=== PATIENT | female | born 1950 | race Hispanic/Latino ===

== ENCOUNTER 2017-09-29 22:05 | Emergency (ER) | payer SELFPAY | END 2017-09-29 22:40 | disposition left against medical advice (07) | LOC: ED 22:05 | DX: Z53.21 Procedure and treatment not carried out due to patient leaving prior to being seen by health care provider (principal) ==

== ENCOUNTER 2017-10-26 00:10 | Emergency (ER) | payer SELFPAY ==
[2017-10-26 01:00] VITALS: BP 159/104
[2017-10-26 01:36] LABS: Basophils % (Auto) 0.5 % (0.0-1.8); Eosinophils % (Auto) 0.5 % (0.0-4.3); Hematocrit 45.1 % (30.3-42.9); Hemoglobin 14.9 gm/dl (10.1-14.3); Mean Corpuscular HGB Conc 33 % (30-34); Mean Corpuscular Hemoglobin 29 pg (28-32); Mean Corpuscular Volume 88 fl (79-97); Platelet Count 248 K/mm3 (140-440); Red Blood Count 5.12 M/mm3 (3.65-5.03); Red Cell Distribution Width 14.9 % (13.2-15.2); White Blood Count 8.4 K/mm3 (4.5-11.0)
[2017-10-26 02:01] LABS: Anion Gap 13 mmol/L; BUN/Creatinine Ratio 25; Blood Urea Nitrogen 15 mg/dL (7-17); Calcium 8.6 mg/dL (8.4-10.2); Carbon Dioxide 32 mmol/L (22-30); Chloride 92.9 mmol/L (98-107); Glucose 122 mg/dL (65-100); Potassium 3.9 mmol/L (3.6-5.0); Sodium 134 mmol/L (137-145)
--- NOTE | 2017-10-26 03:00 | XRay Report ---
FINAL REPORT PROCEDURE: XR CHEST ROUTINE 2V TECHNIQUE: PA and lateral chest radiographs were obtained. CPT 41185 HISTORY: Shortness of breath, SOB, cough, and fever..started getting worse today COMPARISON: No prior studies are available for comparison. FINDINGS: Heart: Heart is enlarged. Mediastinum/Vessels: Normal. Lungs/Pleural space: Lungs are expanded and clear. There are no infiltrates, effusions or pneumothoraces.. Bony thorax: No acute osseous abnormality. There is degenerative arthrosis of the glenohumeral joints. Other: IMPRESSION: Heart is enlarged. There is no acute lung disease.
--- NOTE | 2017-10-26 03:29 | Emergency Department Report ---
HPI - General Chief Complaint: Dyspnea/Respdistress - HPI HPI: This is a 67-year-old female presents to the emergency department from home with complaint of some nausea and vomiting. Patient says that she has been dealing with some "cold" symptoms and thinks that she might have "the flu." The patient has a past medical history of asthma, CHF, COPD on 2 L nasal cannula, CVA, diabetes, coronary artery disease with DC and hypertension. She is also a tobacco smoker but says that she is trying to quit. 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 She denies any fever, chest pain or diaphoresis. She does have some shortness of breath but says that she always has this. She also has bilateral lower extremity swelling that worsened a few days ago but once again she says that she always has those symptoms. ED Past Medical Hx - Past Medical History Previous Medical History?: Yes Hx Hypertension: Yes Hx CVA: Yes Hx Heart Attack/AMI: Yes Hx Congestive Heart Failure: Yes Hx Diabetes: Yes Hx Arthritis: Yes Hx Asthma: Yes Hx COPD: Yes (Home 02 2 liters) Additional medical history: smoke 1/2 pack cigarettes a day - Surgical History Additional Surgical History: tubal ligation - Social History Smoking Status: Current Every Day Smoker - Medications Home Medications: Home Medications Medication Instructions Recorded Confirmed Last Taken Type Unobtainable [Unobtainable] 08/29/13 08/29/13 Unknown History ED Review of Systems ROS: Stated complaint: N/V; BODYACHES; FATIGUE Other details as noted in HPI Comment: All other systems reviewed and negative Constitutional: denies: chills, fever ENT: denies: ear pain, throat pain Respiratory: cough, shortness of breath (chronic) Cardiovascular: edema. denies: chest pain Gastrointestinal: nausea, vomiting. denies: abdominal pain Genitourinary: denies: urgency, dysuria, discharge Musculoskeletal: denies: back pain, joint swelling, arthralgia Skin: denies: rash, lesions Physical Exam - Physical Exam Vital Signs: Vital Signs 10/26/17 00:51 Temperature 98.6 F Pulse Rate 86 Respiratory 24 Rate Blood Pressure 159/104 O2 Sat by Pulse 91 Oximetry Physical Exam: GENERAL: The patient is well-developed well-nourished. HENT: Normocephalic. Atraumatic. Patient has moist mucous membranes. EYES: Extraocular motions are intact. Pupils equal reactive to light bilaterally. NECK: Supple. Trachea is midline. CHEST/LUNGS: Coarse breath sound heard throughout the chest. There is some mild wheezing heard. Mild tachypnea but no accessory muscle use. There is no respiratory distress noted. HEART/CARDIOVASCULAR: Regular. There is no tachycardia. There is no murmur. ABDOMEN: Abdomen is soft, nontender. Patient has normal bowel sounds. There is no abdominal distention. SKIN: Skin is warm and dry. There is some pitting edema to the bilateral lower extremities. NEURO: The patient is awake, alert, and oriented. The patient is cooperative. The patient has no focal neurologic deficits. The patient has normal speech. MUSCULOSKELETAL: There is no tenderness or deformity. There is no evidence of acute injury. ED Course Vital Signs 10/26/17 00:51 Temperature 98.6 F Pulse Rate 86 Respiratory 24 Rate Blood Pressure 159/104 O2 Sat by Pulse 91 Oximetry ED Medical Decision Making - Lab Data Result diagrams: 10/26/17 01:17 10/26/17 01:17 - EKG Data -: EKG Interpreted by Sd EKG shows normal: sinus rhythm, axis, intervals, QRS complexes, ST-T waves ( Nonspecific T-waves) Rate: normal - EKG Data When compared to previous EKG there are: previous EKG unavailable Interpretation: other (sinus rhythm, normal axis, normal rate, nonspecific T waves.) - Radiology Data Radiology results: image reviewed interpreted by me: Chest x-ray shows some mild cardiomegaly and some pulmonary vascular congestion. No obvious pleural effusions. No obvious pneumonia. - Medical Decision Making The patient had the majority of her blood work done through triage. It shows an equivocal troponin of 0.017. She has a BNP of greater than 21,000 and both of this is without any renal insufficiency. Chest x-ray shows some pulmonary vascular congestion. Negative for influenza. Patient has some hypoxia on room air but is usually 2 L oxygen dependent at home. Even before I was able to get this patient's chart and see her in the room, she was already telling the nurse that she has to go home. She is very concerned to make sure that her son is able to get home and get to work on time. I sat down with the patient and explained that she had lab abnormalities and appeared to me to have signs of CHF and COPD exacerbation. I feel that she requires admission for diuresis, breathing treatments and possibly cardio and/or pulmonology consultation. However the patient still refuses to stay for any further testing and certainly for admission. She understands that this could lead to worsening of her nausea and vomiting, shortness of breath, heart attack, respiratory distress, coma or even . She says that she plans to follow-up with her primary care physician and her specialists as early this week as possible and says that she will return to the ER if anything changes. Despite the risks mention to her, she does not want to stay and has decided to sign out AGAINST MEDICAL ADVICE. - Differential Diagnosis CHF, COPD, DC, PE Critical Care Time: No Critical care attestation.: If time is entered above; I have spent that time in minutes in the direct care of this critically ill patient, excluding procedure time. ED Disposition Clinical Impression: COPD exacerbation, Lower extremity edema CHF exacerbation Qualifiers: Congestive heart failure type: unspecified congestive heart failure type Qualified Code(s): I50.9 - Heart failure, unspecified Hypertension Qualifiers: Hypertension type: essential hypertension Qualified Code(s): I10 - Essential ( primary) hypertension Disposition: LEFT AGAINST MED ADVICE Is pt being admited?: No Condition: Fair Instructions: Chronic Bronchitis (ED), Hypertension (ED) Time of Disposition: 04:02
== END 2017-10-26 03:49 | disposition left against medical advice (07) ==
LOC: ED 00:10
DX: J44.1 Chronic obstructive pulmonary disease with (acute) exacerbation (principal); I11.0 Hypertensive heart disease with heart failure; I50.9 Heart failure, unspecified; I25.2 Old myocardial infarction; E11.9 Type 2 diabetes mellitus without complications; M19.90 Unspecified osteoarthritis, unspecified site; F17.210 Nicotine dependence, cigarettes, uncomplicated; Z86.73 Personal history of transient ischemic attack (TIA), and cerebral infarction without residual deficits; Z98.51 Tubal ligation status; Z99.81 Dependence on supplemental oxygen; Z88.6 Allergy status to analgesic agent; Z88.8 Allergy status to other drugs, medicaments and biological substances
CPT/HCPCS: 36415; 71020; 80048; 83880; 84484; 85025; 87400; 93005; 93010; 99284

== ENCOUNTER 2018-03-25 13:07 | Inpatient (IN) | payer MEDICARE ==
[2018-03-25] MEDS ORDERED: PROVENTIL IH ONE (13:33)
[2018-03-25] MEDS ORDERED: ATROVENT IH ONE (13:33)
[2018-03-25] MEDS ORDERED: LASIX IV ONE (13:33)
--- NOTE | 2018-03-25 14:07 | XRay Report ---
Single view chest: Compared to 10/26/17. History: Shortness of breath. Findings: Marked cardiomegaly. Trachea is midline. Mild to moderate venous congestion. No consolidation or pleural effusion. Impression: Probable early CHF. The No significant interval change.
[2018-03-25 14:26] LABS: Basophils % (Auto) 0.2 % (0.0-1.8); Eosinophils % (Auto) 0.3 % (0.0-4.3); Hematocrit 46.1 % (30.3-42.9); Hemoglobin 15.9 gm/dl (10.1-14.3); Lymphocytes # (Auto) 1.1 K/mm3 (1.2-5.4); Lymphocytes % (Auto) 12.7 % (13.4-35.0); Mean Corpuscular HGB Conc 35 % (30-34); Mean Corpuscular Hemoglobin 30 pg (28-32); Mean Corpuscular Volume 88 fl (79-97); Monocytes # (Auto) 0.8 K/mm3 (0.0-0.8); Monocytes % (Auto) 8.7 % (0.0-7.3); Platelet Count 274 K/mm3 (140-440); Red Blood Count 5.23 M/mm3 (3.65-5.03); Red Cell Distribution Width 13.9 % (13.2-15.2)
[2018-03-25 14:36] LABS: BUN/Creatinine Ratio 24; Blood Urea Nitrogen 12 mg/dL (7-17); Calcium 9.2 mg/dL (8.4-10.2); Hemolysis Index 3
--- NOTE | 2018-03-25 14:46 | Emergency Department Report ---
ED Shortness of Breath HPI - General Chief Complaint: Dyspnea/Respdistress Stated Complaint: DIFFICULTY BREATHING Time Seen by Provider: 03/25/18 13:33 Source: patient, EMS Mode of arrival: Stretcher Limitations: No Limitations - History of Present Illness Initial Comments: Patient is a 67-year-old female with past medical history of COPD and CHF who is presenting with shortness of breath. Patient states she's had some increased work of breathing for the past 2-3 days. Patient called 911 and when she was seen by the paramedics her O2 sats when the low 80s. Patient was noted to be wheezing in route and did receive a breathing treatment and Solu-Medrol. Patient states that she has had a cough is nonproductive she denies any fevers nausea vomiting diarrhea abdominal pain at this time. - Related Data Home Medications Medication Instructions Recorded Confirmed Last Taken Unobtainable 08/29/13 08/29/13 Unknown Allergies Allergy/AdvReac Type Severity Reaction Status Date / Time ibuprofen [From Motrin] Allergy Rash Verified 03/25/18 13:23 codeine AdvReac Vomiting Verified 03/25/18 13:23 etodolac [From Lodine] AdvReac Vomiting Verified 03/25/18 13:23 ED Review of Systems ROS: Stated complaint: DIFFICULTY BREATHING Other details as noted in HPI Comment: All other systems reviewed and negative ED Past Medical Hx - Past Medical History Hx Hypertension: Yes Hx CVA: Yes Hx Heart Attack/AMI: Yes Hx Congestive Heart Failure: Yes Hx Diabetes: Yes Hx Arthritis: Yes Hx Asthma: Yes Hx COPD: Yes (Home 02 2 liters) Additional medical history: smoke 1/2 pack cigarettes a day - Surgical History Additional Surgical History: tubal ligation - Social History Smoking Status: Current Every Day Smoker Substance Use Type: Alcohol - Medications Home Medications: Home Medications Medication Instructions Recorded Confirmed Last Taken Type Unobtainable 08/29/13 08/29/13 Unknown History ED Physical Exam - General Limitations: No Limitations General appearance: alert, in no apparent distress - Head Head exam: Present: atraumatic, normocephalic - Eye Eye exam: Present: normal appearance - ENT ENT exam: Present: mucous membranes moist - Neck Neck exam: Present: normal inspection - Respiratory Respiratory exam: Present: normal lung sounds bilaterally, rales. Absent: respiratory distress, wheezes, rhonchi, stridor - Cardiovascular Cardiovascular Exam: Present: regular rate, normal rhythm. Absent: systolic murmur, diastolic murmur, rubs, gallop - GI/Abdominal GI/Abdominal exam: Present: soft, normal bowel sounds. Absent: distended, tenderness, guarding - Extremities Exam Extremities exam: Present: normal inspection - Back Exam Back exam: Present: normal inspection - Neurological Exam Neurological exam: Present: alert, oriented X3 - Psychiatric Psychiatric exam: Present: normal affect, normal mood - Skin Skin exam: Present: warm, dry, intact, normal color. Absent: rash ED Course Vital Signs 03/25/18 03/25/18 03/25/18 13:14 13:15 13:24 Temperature 98.1 F Pulse Rate 82 77 Respiratory 28 H 27 H 22 Rate Blood Pressure 138/70 O2 Sat by Pulse 83 L 96 Oximetry 03/25/18 03/25/18 03/25/18 13:30 13:45 14:01 Temperature Pulse Rate 75 77 85 Respiratory 18 23 29 H Rate Blood Pressure 138/64 129/69 128/60 O2 Sat by Pulse 100 76 L 99 Oximetry 03/25/18 14:30 Temperature Pulse Rate 73 Respiratory 18 Rate Blood Pressure 130/70 O2 Sat by Pulse 92 Oximetry ED Medical Decision Making - Lab Data Result diagrams: 03/25/18 13:31 03/25/18 13:31 Lab Results 03/25/18 03/25/18 03/25/18 Range/Units 13:31 13:31 14:22 WBC 8.8 (4.5-11.0) K/mm3 RBC 5.23 H (3.65-5.03) M/mm3 Hgb 15.9 H (10.1-14.3) gm/dl Hct 46.1 H (30.3-42.9) % MCV 88 (79-97) fl MCH 30 (28-32) pg MCHC 35 H (30-34) % RDW 13.9 (13.2-15.2) % Plt Count 274 (140-440) K/mm3 Lymph % (Auto) 12.7 L (13.4-35.0) % [place] % (Auto) 8.7 H (0.0-7.3) % Eos % (Auto) 0.3 (0.0-4.3) % Baso % (Auto) 0.2 (0.0-1.8) % Lymph # 1.1 L (1.2-5.4) K/mm3 [place] # 0.8 (0.0-0.8) K/mm3 Eos # 0.0 (0.0-0.4) K/mm3 Baso # 0.0 (0.0-0.1) K/mm3 Seg Neutrophils % 78.1 H (40.0-70.0) % Seg Neutrophils # 6.9 (1.8-7.7) K/mm3 Sodium 122 L (137-145) mmol/L Potassium 3.7 (3.6-5.0) mmol/L Chloride 77.0 L (98-107) mmol/L Carbon Dioxide 36 H (22-30) mmol/L Anion Gap 13 mmol/L BUN 12 (7-17) mg/dL Creatinine 0.5 L (0.7-1.2) mg/dL Estimated GFR > 60 ml/min BUN/Creatinine Ratio 24 % Glucose 135 H (65-100) mg/dL POC Glucose 137 H (70-105) Calcium 9.2 (8.4-10.2) mg/dL Troponin T < 0.010 (0.00-0.029) ng/mL NT-Pro-B Natriuret Pep 6600 H (0-900) pg/mL - EKG Data -: EKG Interpreted by Me - EKG Data Interpretation: other (EKG shows sinus rhythm rate of 75 normal axis normal intervals lateral T-wave inversions and no ST segment elevations or depressions , interpretation is 1335) - Radiology Data Chest x-ray shows pulmonary edema and cardiomegaly consistent with CHF exacerbation - Medical Decision Making Patient is a 67-year-old female who is here with respiratory distress. Patient's wheezing had improved by time she arrived. Patient was given 60 of Lasix IV. Patient was tried on nasal cannula however her O2 sats continued to drop when she is not O nonrebreather. Patient was started on Ventimask and respiratory will monitor. Patient will be admitted at this time to Dr. Hazel with the hospitalist service. We will continue to monitor the patient's O2 sat restore status and given the respiratory therapist the go ahead to start the patient on BiPAP if warranted. Critical care attestation.: If time is entered above; I have spent that time in minutes in the direct care of this critically ill patient, excluding procedure time. ED Disposition Clinical Impression: Hypoxia CHF exacerbation Qualifiers: Heart failure type: unspecified Qualified Code(s): I50.9 - Heart failure, unspecified Disposition: DC-01 TO HOME OR SELFCARE Is pt being admited?: Yes Does the pt Need Aspirin: No Condition: Serious
--- NOTE | 2018-03-25 14:50 | History and Physical Report ---
History of Present Illness Chief complaint: Im short of breath History of present illness: 67 YO Female with HTN, CVA, DM, OA, COPD on Home Oxygen, Chronic Respiratory Failure, Nicotine Dependence presents to ED for evaluation. Pt states that she has experienced shortness of breath and cough for the past 3 days with worsening symptoms over the past 2 days. Pt acknowledges Orthopnea/PND, Bilateral leg swelling. Pt states she became concerned this morning, and called EMS. Upon arrival, the patient was found to have Acute hypoxemic Respiratory Failure with pulse oximetry of 82% on room air. PT was treated with supplemental oxygen and transported to [facility] for further care and evaluation. Pt seen and evaluated in ED and found to have Acute CHF with concomitant respiratory failure. Pt admitted to telemetry. Cardiology consulted in ED. Pt denies fever, chills, CP, Palpitations, NVD, Syncope, Trauma, BRBPR, hemoptysis , or recent ill contacts. Past History Past Medical History: acute [place], arthritis, COPD, diabetes, heart failure, hypertension, stroke Past Surgical History: Other (Tubal ligation) Social history: , smoking Family history: no significant family history (reviewed) Medications and Allergies Allergies Allergy/AdvReac Type Severity Reaction Status Date / Time ibuprofen [From Motrin] Allergy Rash Verified 03/25/18 13:23 codeine AdvReac Vomiting Verified 03/25/18 13:23 etodolac [From Lodine] AdvReac Vomiting Verified 03/25/18 13:23 Home Medications Medication Instructions Recorded Confirmed Last Taken Type Unobtainable 08/29/13 08/29/13 Unknown History Review of Systems Constitutional: no weight loss, no weight gain, no fever, no chills Ears, nose, mouth and throat: no ear pain, no ear discharge, no tinnitis, no decreased hearing, no nose pain, no nasal congestion Breasts: no change in shape, no swelling, no mass Cardiovascular: orthopnea, edema, shortness of breath, paroxysmal nocturnal dyspnea, no chest pain, no syncope Respiratory: cough, no excessive sputum, no hemoptysis Gastrointestinal: no nausea, no vomiting, no diarrhea, no constipation Genitourinary Female: no pelvic pain, no flank pain, no dysuria, no urinary frequency, no urgency Rectal: no pain, no incontinence, no bleeding Musculoskeletal: no neck pain, no shooting arm pain, no arm numbness/tingling, no low back pain, no shooting leg pain, no leg numbness/tingling Integumentary: no rash, no pruritis, no redness, no sores, no wounds Neurological: no weakness, no parathesias, no numbness, no tingling, no seizures , no syncope Endocrine: no cold intolerance, no heat intolerance, no polyphagia, no excessive thirst, no polydipsia, no polyuria Hematologic/Lymphatic: no easy bruising, no easy bleeding, no lymphadenopathy, no lymphedema Allergic/Immunologic: no urticaria, no allergic rhinitis, no wheezing, no persistent infections, no anaphylaxis Exam - Constitutional Vitals: Temp Pulse Resp BP Pulse Ox 98.1 F 73 18 130/70 92 03/25/18 13:24 03/25/18 14:30 03/25/18 14:30 03/25/18 14:30 03/25/18 14:30 General appearance: Present: mild distress - EENT Eyes: Present: PERRL ENT: hearing intact, clear oral mucosa - Neck Neck: Present: supple, normal ROM - Respiratory Respiratory effort: labored Respiratory: bilateral: diminished, rhonchi - Cardiovascular Heart Sounds: Present: S1 & S2. Absent: rub, click - Extremities Extremities: pulses symmetrical, No edema Peripheral Pulses: within normal limits - Abdominal General gastrointestinal: Present: soft, non-tender, non-distended, normal bowel sounds Female genitourinary: Present: normal - Integumentary Integumentary: Present: clear, warm, dry - Musculoskeletal Musculoskeletal: gait normal, strength equal bilaterally - Psychiatric Psychiatric: appropriate mood/affect, intact judgment & insight - Neurologic Neurologic: CNII-XII intact, moves all extremities Results - Labs CBC & Chem 7: 03/25/18 13:31 03/25/18 13:31 Labs: Abnormal lab results 03/25/18 03/25/18 03/25/18 Range/Units 13:31 13:31 14:22 RBC 5.23 H (3.65-5.03) M/mm3 Hgb 15.9 H (10.1-14.3) gm/dl Hct 46.1 H (30.3-42.9) % MCHC 35 H (30-34) % Lymph % (Auto) 12.7 L (13.4-35.0) % [place] % (Auto) 8.7 H (0.0-7.3) % Lymph # 1.1 L (1.2-5.4) K/mm3 Seg Neutrophils % 78.1 H (40.0-70.0) % Sodium 122 L (137-145) mmol/L Chloride 77.0 L (98-107) mmol/L Carbon Dioxide 36 H (22-30) mmol/L Creatinine 0.5 L (0.7-1.2) mg/dL Glucose 135 H (65-100) mg/dL POC Glucose 137 H (70-105) NT-Pro-B Natriuret Pep 6600 H (0-900) pg/mL Assessment and Plan - Patient Problems (1) CHF (congestive heart failure) Current Visit: Yes Status: Acute Qualifiers: Heart failure type: systolic Heart failure chronicity: acute Qualified Code(s): I50.21 - Acute systolic (congestive) heart failure Plan to address problem: Admit to telemetry, Strict I/O, Daily weight, monitor uop q shift, supplemental oxygen, Echo, cardiology consulted in ED, thyroid panel, BNP,Chest X ray (2) Hyponatremia syndrome Current Visit: Yes Status: Acute Plan to address problem: Urine electrolytes, repeat bmp, (3) COPD (chronic obstructive pulmonary disease) Current Visit: Yes Status: Acute Qualifiers: COPD type: chronic bronchitis Plan to address problem: supplemental oxygen, nebulizer therapy, incentive spirometry, smoking cessation counseling, NIPPV as clinically indicated. (4) Acute respiratory failure Current Visit: Yes Status: Acute Qualifiers: Respiratory failure complication: hypoxia Qualified Code(s): J96.01 - Acute respiratory failure with hypoxia Plan to address problem: Supplemental oxygen, nebulizer therapy, diuresis, pulse oximetry, (5) DVT prophylaxis Current Visit: Yes Status: Acute Plan to address problem: SCD to BLE while in bed
[2018-03-25] MEDS ORDERED: PROVENTIL IH PRN (14:52)
[2018-03-25] MEDS ORDERED: SODIUM CHLORIDE FLUSH SYRINGE 10 ML IV PRN (14:52)
[2018-03-25] MEDS ORDERED: ZOFRAN IV PRN (14:52)
--- NOTE | 2018-03-25 16:17 | Consultation ---
History of Present Illness Consult date: 03/25/18 Consult reason: congestive heart failure History of present illness: Patient is a 67yr old woman with a history of COPD on home oxygen who continues to smoke cigarettes. She was brought to the emergency department with shortness of breath, active wheezing, admitted with COPD exacerbation. Chest xray reports marked cardiomegaly with mild interstitial edema. Labs notable for a BNP of 6600 and severe hyponatremia, sodium of 122. She denies chest pain. Noted with lower extremity edema. Findings consistent with heart failure. Patient denies a prior cardiac history. She denies prior cardiac workup. Her EKG is a sinus rhythm with LVH. No acute ischemic changes. Cardiac consultation was requested for further CHF evaluation and management. Past History Social history: , smoking Family history: no significant family history (reviewed) Medications and Allergies Allergies Allergy/AdvReac Type Severity Reaction Status Date / Time ibuprofen [From Motrin] Allergy Rash Verified 03/25/18 13:23 codeine AdvReac Vomiting Verified 03/25/18 13:23 etodolac [From Lodine] AdvReac Vomiting Verified 03/25/18 13:23 Home Medications Medication Instructions Recorded Confirmed Last Taken Type Unobtainable 08/29/13 08/29/13 Unknown History Active Meds: Active Medications Acetaminophen (Tylenol) 650 mg PO Q4H PRN PRN Reason: Pain MILD(1-3)/Fever >100.5/MAK Albuterol (Proventil) 2.5 mg IH Q4HRT PRN PRN Reason: Shortness Of Breath Furosemide (Lasix) 20 mg PO BID@0600,1800 ARNULFO Ondansetron HCl (Zofran) 4 mg IV Q8H PRN PRN Reason: Nausea And Vomiting Sodium Chloride (Sodium Chloride Flush Syringe 10 Ml) 10 ml IV BID ARNULFO Sodium Chloride (Sodium Chloride Flush Syringe 10 Ml) 10 ml IV PRN PRN PRN Reason: LINE FLUSH Physical Examination Vital Signs Resp 28 H 03/25/18 13:14 General appearance: mild distress Cardiac: Positive: Reg Rate and Rhythm Lungs: Positive: Wheezes Extremities: Present: +3 Edema Results 03/25/18 13:31 03/25/18 13:31 CBC 03/25/18 Range/Units 13:31 WBC 8.8 (4.5-11.0) K/mm3 RBC 5.23 H (3.65-5.03) M/mm3 Hgb 15.9 H (10.1-14.3) gm/dl Hct 46.1 H (30.3-42.9) % Plt Count 274 (140-440) K/mm3 Lymph # 1.1 L (1.2-5.4) K/mm3 [place] # 0.8 (0.0-0.8) K/mm3 Eos # 0.0 (0.0-0.4) K/mm3 Baso # 0.0 (0.0-0.1) K/mm3 Comprehensive Metabolic Panel 03/25/18 Range/Units 13:31 Sodium 122 L (137-145) mmol/L Potassium 3.7 (3.6-5.0) mmol/L Chloride 77.0 L (98-107) mmol/L Carbon Dioxide 36 H (22-30) mmol/L BUN 12 (7-17) mg/dL Creatinine 0.5 L (0.7-1.2) mg/dL Glucose 135 H (65-100) mg/dL Calcium 9.2 (8.4-10.2) mg/dL Assessment and Plan COPD exacerbation Acute heart failure Hyponatremia We will get an echocardiogram for LVEF assessment. Pulmonary consultation for management of COPD.
[2018-03-25 16:54] LABS: Free T4 (Free Thyroxine) 1.69 ng/dL (0.76-1.46)
[2018-03-25] MEDS: LASIX PO SCH (18:36)
[2018-03-25] MEDS: SODIUM CHLORIDE FLUSH SYRINGE 10 ML IV SCH (22:03)
[2018-03-26] MEDS: LASIX PO SCH (06:16)
[2018-03-26] MEDS: SODIUM CHLORIDE FLUSH SYRINGE 10 ML IV SCH (11:42)
[2018-03-26] MEDS: TYLENOL PO PRN (11:43)
--- NOTE | 2018-03-26 16:03 | Progress Note ---
Assessment and Plan COPD exacerbation Acute systolic heart failure, uncertain etiology severe 4 chamber dilated cardiomyopathy, EF 10-15% by echocardiogram. Hyponatremia Recommend: Medical therapy for acute systolic heart failure. Sodium/fluid restriction. Daily weight. Further ischemic cardiac evaluation will depend on clinical course. Subjective Date of service: 03/26/18 Interval history: Patient is still short of breath. She denies chest pain. Objective Vital Signs Temp Pulse Pulse Resp BP Pulse Ox 03/26/18 12:02 79 18 95 03/26/18 12:00 82 03/26/18 11:19 97.6 F 74 20 116/67 98 03/26/18 07:39 97.9 F 66 18 120/68 100 03/26/18 04:33 97.5 F L 81 125/79 97 03/26/18 04:00 77 03/25/18 23:35 98.0 F 64 115/57 99 03/25/18 20:47 97 03/25/18 20:31 98 03/25/18 20:18 97.6 F 03/25/18 20:00 74 03/25/18 19:20 75 134/69 99 03/25/18 18:26 97.8 F 80 135/68 96 03/25/18 16:51 72 16 115/51 94 03/25/18 16:41 77 16 135/63 93 03/25/18 16:30 76 18 135/63 92 03/25/18 16:21 81 22 129/57 93 03/25/18 16:11 66 15 129/57 92 03/25/18 16:00 77 17 129/57 87 - Physical Examination General: Other (Mild distress) Cardiac: Positive: Reg Rate and Rhythm Lungs: Positive: Decreased Breath Sounds Neuro: Positive: Grossly Intact Extremities: Present: +2 Edema
[2018-03-26] MEDS: DUONEB *Not for PRN Use IH SCH ×3 (16:45→21:15)
--- NOTE | 2018-03-26 17:21 | Progress Note ---
Assessment and Plan Assessment and plan: 67 YO Female with HTN, CVA, DM, OA, COPD on Home Oxygen, Chronic Respiratory Failure, Nicotine Dependence presents to ED for evaluation. Pt states that she has experienced shortness of breath and cough for the past 3 days with worsening symptoms over the past 2 days. Pt acknowledges Orthopnea/PND, Bilateral leg swelling. Pt states she became concerned this morning, and called EMS. Upon arrival, the patient was found to have Acute hypoxemic Respiratory Failure with pulse oximetry of 82% on room air. PT was treated with supplemental oxygen and transported to [facility] for further care and evaluation. Acute on chronic respiratory failure COPD exacerbation New onset systolic CHF Diabetes mellitus Nicotine dependence - This morning echo was done and showed ejection fraction of 10-15%, patient is on milrinone drip and other appropriate CHF medications, cardiology consult appreciated - COPD exacerbation is dictated with IV Solu-Medrol, nebulizer, oxygen support - Sliding-scale insulin, patient consulted about cessation of smoking DVT prophylaxis - Heparin Disposition - Continue inpatient care, patient doing systemic workup once she is stable from her COPD History Interval history: Patient was seen and evaluated this morning, patient says shortness of breath is getting better. Hospitalist Physical - Physical exam Narrative exam: Not in cardiopulmonary distress. The patient appeared well nourished and normally developed. Vital signs as documented. Head exam is unremarkable. No scleral icterus . Neck is without jugular venous distension, thyromegaly, or carotid bruits. Lungs scattered wheezing. Cardiac exam reveals regular rate and Rhythm.. Abdominal exam reveals normal bowel sounds, no masses, no organomegaly and no aortic enlargement. Extremities are nonedematous and both femoral and pedal pulses are normal. 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 No focal weakness. - Constitutional Vitals: Temp Pulse Resp BP Pulse Ox 97.6 F 72 21 116/67 95 03/26/18 11:19 03/26/18 16:47 03/26/18 16:47 03/26/18 11:19 03/26/18 12:02 General appearance: Present: mild distress Results - Labs CBC & Chem 7: 03/25/18 13:31 03/25/18 13:31 Labs: Laboratory Last Values WBC 8.8 K/mm3 (4.5-11.0) 03/25/18 13:31 RBC 5.23 M/mm3 (3.65-5.03) H 03/25/18 13:31 Hgb 15.9 gm/dl (10.1-14.3) H 03/25/18 13:31 Hct 46.1 % (30.3-42.9) H 03/25/18 13:31 MCV 88 fl (79-97) 03/25/18 13:31 MCH 30 pg (28-32) 03/25/18 13:31 MCHC 35 % (30-34) H 03/25/18 13:31 RDW 13.9 % (13.2-15.2) 03/25/18 13:31 Plt Count 274 K/mm3 (140-440) 03/25/18 13:31 Lymph % (Auto) 12.7 % (13.4-35.0) L 03/25/18 13:31 [place] % (Auto) 8.7 % (0.0-7.3) H 03/25/18 13:31 Eos % (Auto) 0.3 % (0.0-4.3) 03/25/18 13:31 Baso % (Auto) 0.2 % (0.0-1.8) 03/25/18 13:31 Lymph # 1.1 K/mm3 (1.2-5.4) L 03/25/18 13:31 [place] # 0.8 K/mm3 (0.0-0.8) 03/25/18 13:31 Eos # 0.0 K/mm3 (0.0-0.4) 03/25/18 13:31 Baso # 0.0 K/mm3 (0.0-0.1) 03/25/18 13:31 Seg Neutrophils % 78.1 % (40.0-70.0) H 03/25/18 13:31 Seg Neutrophils # 6.9 K/mm3 (1.8-7.7) 03/25/18 13:31 Sodium 122 mmol/L (137-145) L 03/25/18 13:31 Potassium 3.7 mmol/L (3.6-5.0) 03/25/18 13:31 Chloride 77.0 mmol/L (98-107) L 03/25/18 13:31 Carbon Dioxide 36 mmol/L (22-30) H 03/25/18 13:31 Anion Gap 13 mmol/L 03/25/18 13:31 BUN 12 mg/dL (7-17) 03/25/18 13:31 Creatinine 0.5 mg/dL (0.7-1.2) L 03/25/18 13:31 Estimated GFR > 60 ml/min 03/25/18 13:31 BUN/Creatinine Ratio 24 % 03/25/18 13:31 Glucose 135 mg/dL (65-100) H 03/25/18 13:31 POC Glucose 136 (70-105) H 03/26/18 06:17 Calcium 9.2 mg/dL (8.4-10.2) 03/25/18 13:31 Troponin T < 0.010 ng/mL (0.00-0.029) 03/25/18 13:31 NT-Pro-B Natriuret Pep 6600 pg/mL (0-900) H 03/25/18 13:31 TSH 3.900 mlU/mL (0.270-4.200) 03/25/18 16:13 Free T4 1.69 ng/dL (0.76-1.46) H 03/25/18 16:13 Urine Creatinine 19.0 mg/dL (0.1-20.0) 03/25/18 19:57 Urine Sodium 92 mmol/L 03/25/18 19:57
[2018-03-26] MEDS ORDERED: D50W (25GM) Syringe IV PRN (17:24)
[2018-03-26 18:35] LABS: Chol/HDL Ratio 2.2 %
[2018-03-26] MEDS: MILRINONE-D5W 20 MG/100 ML 20 MG/100 ML BAG IV SCH (18:44)
[2018-03-26] MEDS: COREG PO SCH (22:00)
[2018-03-27] MEDS: HumaLOG SUB-Q SCH ×5 (00:29→22:04)
[2018-03-27] MEDS: SODIUM CHLORIDE FLUSH SYRINGE 10 ML IV SCH ×3 (00:30→23:04)
[2018-03-27] MEDS: HEPARIN SUB-Q SCH ×3 (00:30→22:03)
[2018-03-27] MEDS: MILRINONE-D5W 20 MG/100 ML 20 MG/100 ML BAG IV SCH (06:38)
[2018-03-27 07:49] LABS: BUN/Creatinine Ratio 30; Blood Urea Nitrogen 15 mg/dL (7-17); Calcium 8.5 mg/dL (8.4-10.2); Hemolysis Index 4
[2018-03-27] MEDS: DUONEB *Not for PRN Use IH SCH ×3 (08:52→21:59)
--- NOTE | 2018-03-27 09:44 | Progress Note ---
Assessment and Plan COPD exacerbation Acute systolic heart failure, uncertain etiology severe dilated cardiomyopathy, EF 10-15% by echocardiogram. Severe Hyponatremia Recommend: Medical therapy for acute systolic heart failure. Sodium/fluid restriction. Daily weight. Noninvasive ischemic workup with a Persantine thallium will be recommended only after the patient's pulmonary status is optimized and has COPD extubation is completely resolved. Subjective Date of service: 03/27/18 Interval history: Patient remains short of breath. No distress noted. Short burst on NSVT seen on telemetry overnight. It's reported the patient remained asymptomatic. Labs notable for severe hyponatremia, sodium of 117. Objective Vital Signs Temp Pulse Pulse Pulse Resp Resp BP 03/27/18 09:02 87 19 03/27/18 08:56 03/27/18 08:50 77 20 03/27/18 07:53 97.6 F 78 18 130/58 03/27/18 06:24 97.6 F 86 22 129/61 03/27/18 00:34 79 132/63 03/26/18 22:00 80 20 03/26/18 21:30 88 20 03/26/18 21:19 03/26/18 21:18 66 20 03/26/18 19:48 70 03/26/18 19:47 97.4 F L 77 18 101/46 03/26/18 16:47 72 21 03/26/18 16:42 97.8 F 76 18 134/63 03/26/18 16:30 68 19 03/26/18 12:02 79 18 03/26/18 12:00 82 03/26/18 11:19 97.6 F 74 20 116/67 03/26/18 10:00 Pulse Ox 03/27/18 09:02 03/27/18 08:56 80 L 03/27/18 08:50 03/27/18 07:53 97 03/27/18 06:24 95 03/27/18 00:34 90 03/26/18 22:00 98 03/26/18 21:30 03/26/18 21:19 91 03/26/18 21:18 03/26/18 19:48 99 03/26/18 19:47 99 03/26/18 16:47 03/26/18 16:42 99 03/26/18 16:30 03/26/18 12:02 95 03/26/18 12:00 03/26/18 11:19 98 03/26/18 10:00 98 - Physical Examination General: No Apparent Distress HEENT: Positive: PERRL Cardiac: Positive: Reg Rate and Rhythm Lungs: Positive: Wheezes Neuro: Positive: Grossly Intact Extremities: Present: +2 Edema - Labs and Meds Lipids 03/26/18 Range/Units 17:47 Triglycerides 67 (2-149) mg/dL Cholesterol 128 (50-199) mg/dL HDL Cholesterol 58 (40-59) mg/dL Cholesterol/HDL Ratio 2.20 % Comprehensive Metabolic Panel 03/27/18 Range/Units 05:56 Sodium 117 L* (137-145) mmol/L Potassium 3.9 (3.6-5.0) mmol/L Chloride 73.9 L (98-107) mmol/L Carbon Dioxide 38 H (22-30) mmol/L BUN 15 (7-17) mg/dL Creatinine 0.5 L (0.7-1.2) mg/dL Glucose 129 H (65-100) mg/dL Calcium 8.5 (8.4-10.2) mg/dL
[2018-03-27] MEDS: K-DUR PO SCH (10:37)
[2018-03-27] MEDS: ZESTRIL PO SCH (10:37)
[2018-03-27] MEDS: COREG PO SCH ×2 (10:38→22:03)
[2018-03-27] MEDS: LASIX IV SCH (10:42)
[2018-03-27] MEDS ORDERED: SAMSCA PO ONE (12:47)
--- NOTE | 2018-03-27 13:57 | Progress Note ---
Assessment and Plan Assessment and plan: 67 YO Female with HTN, CVA, DM, OA, COPD on Home Oxygen, Chronic Respiratory Failure, Nicotine Dependence presents to ED for evaluation. Pt states that she has experienced shortness of breath and cough for the past 3 days with worsening symptoms over the past 2 days. Pt acknowledges Orthopnea/PND, Bilateral leg swelling. Pt states she became concerned this morning, and called EMS. Upon arrival, the patient was found to have Acute hypoxemic Respiratory Failure with pulse oximetry of 82% on room air. PT was treated with supplemental oxygen and transported to [facility] for further care and evaluation. Acute on chronic respiratory failure COPD exacerbation New onset systolic CHF Diabetes mellitus Nicotine dependence - This morning echo was done and showed ejection fraction of 10-15%, patient is on milrinone drip and other appropriate CHF medications, cardiology consult appreciated - COPD exacerbation is dictated with IV Solu-Medrol, nebulizer, oxygen support - Sliding-scale insulin, patient consulted about cessation of smoking DVT prophylaxis - Heparin Disposition - Continue inpatient care, patient doing systemic workup once she is stable from her COPD severe hyponatremia - tolvaptan was given History Interval history: Patient was seen and evaluated this morning, patient says shortness of breath is getting better. patient wants to go home. Hospitalist Physical - Physical exam Narrative exam: Not in cardiopulmonary distress. The patient appeared well nourished and normally developed. Vital signs as documented. Head exam is unremarkable. No scleral icterus . Neck is without jugular venous distension, thyromegaly, or carotid bruits. Lungs scattered wheezing. Cardiac exam reveals regular rate and Rhythm.. Abdominal exam reveals normal bowel sounds, no masses, no organomegaly and no aortic enlargement. Extremities are nonedematous and both femoral and pedal pulses are normal. 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 No focal weakness. - Constitutional Vitals: Temp Pulse Resp BP Pulse Ox 97.6 F 90 19 130/58 80 L 03/27/18 07:53 03/27/18 10:37 03/27/18 09:02 03/27/18 07:53 03/27/18 08:56 General appearance: Present: mild distress Results - Labs CBC & Chem 7: 03/25/18 13:31 03/27/18 05:56 Labs: Laboratory Last Values WBC 8.8 K/mm3 (4.5-11.0) 03/25/18 13:31 RBC 5.23 M/mm3 (3.65-5.03) H 03/25/18 13:31 Hgb 15.9 gm/dl (10.1-14.3) H 03/25/18 13:31 Hct 46.1 % (30.3-42.9) H 03/25/18 13:31 MCV 88 fl (79-97) 03/25/18 13:31 MCH 30 pg (28-32) 03/25/18 13:31 MCHC 35 % (30-34) H 03/25/18 13:31 RDW 13.9 % (13.2-15.2) 03/25/18 13:31 Plt Count 274 K/mm3 (140-440) 03/25/18 13:31 Lymph % (Auto) 12.7 % (13.4-35.0) L 03/25/18 13:31 [place] % (Auto) 8.7 % (0.0-7.3) H 03/25/18 13:31 Eos % (Auto) 0.3 % (0.0-4.3) 03/25/18 13:31 Baso % (Auto) 0.2 % (0.0-1.8) 03/25/18 13:31 Lymph # 1.1 K/mm3 (1.2-5.4) L 03/25/18 13:31 [place] # 0.8 K/mm3 (0.0-0.8) 03/25/18 13:31 Eos # 0.0 K/mm3 (0.0-0.4) 03/25/18 13:31 Baso # 0.0 K/mm3 (0.0-0.1) 03/25/18 13:31 Seg Neutrophils % 78.1 % (40.0-70.0) H 03/25/18 13:31 Seg Neutrophils # 6.9 K/mm3 (1.8-7.7) 03/25/18 13:31 Sodium 117 mmol/L (137-145) L* 03/27/18 05:56 Potassium 3.9 mmol/L (3.6-5.0) 03/27/18 05:56 Chloride 73.9 mmol/L (98-107) L 03/27/18 05:56 Carbon Dioxide 38 mmol/L (22-30) H 03/27/18 05:56 Anion Gap 9 mmol/L 03/27/18 05:56 BUN 15 mg/dL (7-17) 03/27/18 05:56 Creatinine 0.5 mg/dL (0.7-1.2) L 03/27/18 05:56 Estimated GFR > 60 ml/min 03/27/18 05:56 BUN/Creatinine Ratio 30 % 03/27/18 05:56 Glucose 129 mg/dL (65-100) H 03/27/18 05:56 POC Glucose 124 (70-105) H 03/27/18 12:05 Hemoglobin A1c 6.3 % (4-6) H 03/26/18 17:47 Calcium 8.5 mg/dL (8.4-10.2) 03/27/18 05:56 Troponin T < 0.010 ng/mL (0.00-0.029) 03/25/18 13:31 NT-Pro-B Natriuret Pep 6600 pg/mL (0-900) H 03/25/18 13:31 Triglycerides 67 mg/dL (2-149) 03/26/18 17:47 Cholesterol 128 mg/dL (50-199) 03/26/18 17:47 LDL Cholesterol Direct 60 mg/dL (50-130) 03/26/18 17:47 HDL Cholesterol 58 mg/dL (40-59) 03/26/18 17:47 Cholesterol/HDL Ratio 2.20 % 03/26/18 17:47 TSH 3.900 mlU/mL (0.270-4.200) 03/25/18 16:13 Free T4 1.69 ng/dL (0.76-1.46) H 03/25/18 16:13 Urine Creatinine 19.0 mg/dL (0.1-20.0) 03/25/18 19:57 Urine Sodium 92 mmol/L 03/25/18 19:57
[2018-03-27] MEDS: TYLENOL PO PRN (22:05)
[2018-03-28 01:09] LABS: BUN/Creatinine Ratio 35; Blood Urea Nitrogen 21 mg/dL (7-17); Calcium 8.8 mg/dL (8.4-10.2); Hemolysis Index 68
[2018-03-28] MEDS: MILRINONE-D5W 20 MG/100 ML 20 MG/100 ML BAG IV SCH (06:42)
[2018-03-28] MEDS: LASIX IV SCH (06:42)
[2018-03-28] MEDS: HumaLOG SUB-Q SCH ×6 (07:45→22:10)
--- NOTE | 2018-03-28 09:09 | Progress Note ---
Subjective Date of service: 03/28/18 Interval history: pt denies orthopnea, no chest pain Continue therapy for acute systolic heart failure Sodium has improved, cont to monitor Non-invasive ischemic cardiac work-up once COPD exacerbation has resolved Original Note: Assessment and Plan COPD exacerbation Acute systolic heart failure, uncertain etiology severe dilated cardiomyopathy, EF 10-15% by echocardiogram. Severe Hyponatremia Recommend: Medical therapy for acute systolic heart failure. Sodium/fluid restriction. Daily weight. Noninvasive ischemic workup with a Persantine thallium will be recommended only after the patient's pulmonary status is optimized and has COPD exacerbation is completely resolved. Objective Vital Signs Temp Pulse Pulse Pulse Resp Resp BP 03/28/18 07:30 97.7 F 66 18 03/28/18 04:20 97.5 F L 71 18 119/79 03/28/18 04:00 62 03/28/18 00:03 98.3 F 20 75/38 03/27/18 23:57 68 82/40 03/27/18 22:10 82 12 03/27/18 22:00 74 18 12 03/27/18 20:01 78 03/27/18 19:59 98.8 F 72 18 125/58 03/27/18 18:21 76 18 03/27/18 18:10 74 18 03/27/18 17:05 98.9 F 70 20 99/48 03/27/18 12:00 71 03/27/18 10:37 90 03/27/18 10:00 72 18 BP Pulse Ox 03/28/18 07:30 105/54 98 03/28/18 04:20 87 03/28/18 04:00 03/28/18 00:03 03/27/18 23:57 95 03/27/18 22:10 03/27/18 22:00 96 03/27/18 20:01 90 03/27/18 19:59 83 L 03/27/18 18:21 03/27/18 18:10 03/27/18 17:05 90 03/27/18 12:00 03/27/18 10:37 03/27/18 10:00 97 - Physical Examination General: No Apparent Distress HEENT: Positive: PERRL Neuro: Positive: Grossly Intact Extremities: Present: +2 Edema - Labs and Meds Comprehensive Metabolic Panel 03/28/18 Range/Units 00:18 Sodium 126 L D (137-145) mmol/L Potassium 4.4 (3.6-5.0) mmol/L Chloride 79.0 L (98-107) mmol/L Carbon Dioxide 39 H (22-30) mmol/L BUN 21 H (7-17) mg/dL Creatinine 0.6 L (0.7-1.2) mg/dL Glucose 116 H (65-100) mg/dL Calcium 8.8 (8.4-10.2) mg/dL
[2018-03-28] MEDS: DUONEB *Not for PRN Use IH SCH ×3 (09:19→21:47)
[2018-03-28] MEDS: HEPARIN SUB-Q SCH ×2 (10:09→22:10)
[2018-03-28] MEDS: COREG PO SCH ×2 (10:10→22:10)
[2018-03-28] MEDS: K-DUR PO SCH (10:11)
[2018-03-28] MEDS: SODIUM CHLORIDE FLUSH SYRINGE 10 ML IV SCH ×2 (10:11→22:10)
[2018-03-28] MEDS: ZESTRIL PO SCH (10:12)
--- NOTE | 2018-03-28 17:06 | Progress Note ---
Assessment and Plan Assessment and plan: 67 YO Female with HTN, CVA, DM, OA, COPD on Home Oxygen, Chronic Respiratory Failure, Nicotine Dependence presents to ED for evaluation. Pt states that she has experienced shortness of breath and cough for the past 3 days with worsening symptoms over the past 2 days. Pt acknowledges Orthopnea/PND, Bilateral leg swelling. Pt states she became concerned this morning, and called EMS. Upon arrival, the patient was found to have Acute hypoxemic Respiratory Failure with pulse oximetry of 82% on room air. PT was treated with supplemental oxygen and transported to [facility] for further care and evaluation. Acute on chronic respiratory failure COPD exacerbation New onset systolic CHF Diabetes mellitus Nicotine dependence - Echo showed ejection fraction of 10-15%, patient is on milrinone drip and other appropriate CHF medications, cardiology consult appreciated - Patient wants to go home and she is not stable enough to be discharged - COPD exacerbation is dictated with IV Solu-Medrol, nebulizer, oxygen support - Sliding-scale insulin, patient consulted about cessation of smoking DVT prophylaxis - Heparin Disposition - Continue inpatient care, patient doing ischemic workup once she is stable. severe hyponatremia - Improved after tolvaptan. History Interval history: Patient was seen and evaluated this morning, patient says shortness of breath is getting better. patient wants to go home. Hospitalist Physical - Physical exam Narrative exam: Not in cardiopulmonary distress. The patient appeared well nourished and normally developed. Vital signs as documented. Head exam is unremarkable. No scleral icterus . Neck is without jugular venous distension, thyromegaly, or carotid bruits. Lungs scattered wheezing. Cardiac exam reveals regular rate and Rhythm.. Abdominal exam reveals normal bowel sounds, no masses, no organomegaly and no aortic enlargement. Extremities are nonedematous and both femoral and pedal pulses are normal. 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 No focal weakness. - Constitutional Vitals: Temp Pulse Resp BP Pulse Ox 97.9 F 82 22 99/47 95 03/28/18 15:51 03/28/18 15:51 03/28/18 15:51 03/28/18 15:51 03/28/18 15:51 General appearance: Present: mild distress Results - Labs CBC & Chem 7: 03/25/18 13:31 03/28/18 00:18 Labs: Laboratory Last Values WBC 8.8 K/mm3 (4.5-11.0) 03/25/18 13:31 RBC 5.23 M/mm3 (3.65-5.03) H 03/25/18 13:31 Hgb 15.9 gm/dl (10.1-14.3) H 03/25/18 13:31 Hct 46.1 % (30.3-42.9) H 03/25/18 13:31 MCV 88 fl (79-97) 03/25/18 13:31 MCH 30 pg (28-32) 03/25/18 13:31 MCHC 35 % (30-34) H 03/25/18 13:31 RDW 13.9 % (13.2-15.2) 03/25/18 13:31 Plt Count 274 K/mm3 (140-440) 03/25/18 13:31 Lymph % (Auto) 12.7 % (13.4-35.0) L 03/25/18 13:31 [place] % (Auto) 8.7 % (0.0-7.3) H 03/25/18 13:31 Eos % (Auto) 0.3 % (0.0-4.3) 03/25/18 13:31 Baso % (Auto) 0.2 % (0.0-1.8) 03/25/18 13:31 Lymph # 1.1 K/mm3 (1.2-5.4) L 03/25/18 13:31 [place] # 0.8 K/mm3 (0.0-0.8) 03/25/18 13:31 Eos # 0.0 K/mm3 (0.0-0.4) 03/25/18 13:31 Baso # 0.0 K/mm3 (0.0-0.1) 03/25/18 13:31 Seg Neutrophils % 78.1 % (40.0-70.0) H 03/25/18 13:31 Seg Neutrophils # 6.9 K/mm3 (1.8-7.7) 03/25/18 13:31 Sodium 126 mmol/L (137-145) L D 03/28/18 00:18 Potassium 4.4 mmol/L (3.6-5.0) 03/28/18 00:18 Chloride 79.0 mmol/L (98-107) L 03/28/18 00:18 Carbon Dioxide 39 mmol/L (22-30) H 03/28/18 00:18 Anion Gap 12 mmol/L 03/28/18 00:18 BUN 21 mg/dL (7-17) H 03/28/18 00:18 Creatinine 0.6 mg/dL (0.7-1.2) L 03/28/18 00:18 Estimated GFR > 60 ml/min 03/28/18 00:18 BUN/Creatinine Ratio 35 % 03/28/18 00:18 Glucose 116 mg/dL (65-100) H 03/28/18 00:18 POC Glucose 235 (70-105) H 03/28/18 16:34 Hemoglobin A1c 6.3 % (4-6) H 03/26/18 17:47 Calcium 8.8 mg/dL (8.4-10.2) 03/28/18 00:18 Troponin T < 0.010 ng/mL (0.00-0.029) 03/25/18 13:31 NT-Pro-B Natriuret Pep 6600 pg/mL (0-900) H 03/25/18 13:31 Triglycerides 67 mg/dL (2-149) 03/26/18 17:47 Cholesterol 128 mg/dL (50-199) 03/26/18 17:47 LDL Cholesterol Direct 60 mg/dL (50-130) 03/26/18 17:47 HDL Cholesterol 58 mg/dL (40-59) 03/26/18 17:47 Cholesterol/HDL Ratio 2.20 % 03/26/18 17:47 TSH 3.900 mlU/mL (0.270-4.200) 03/25/18 16:13 Free T4 1.69 ng/dL (0.76-1.46) H 03/25/18 16:13 Urine Creatinine 19.0 mg/dL (0.1-20.0) 03/25/18 19:57 Urine Sodium 92 mmol/L 03/25/18 19:57
[2018-03-28] MEDS: TYLENOL PO PRN (22:02)
[2018-03-29 01:56] LABS: BUN/Creatinine Ratio 48; Blood Urea Nitrogen 29 mg/dL (7-17); Hemolysis Index 2
[2018-03-29] MEDS: LASIX IV SCH (06:09)
[2018-03-29] MEDS: MILRINONE-D5W 20 MG/100 ML 20 MG/100 ML BAG IV SCH (07:09)
[2018-03-29] MEDS: DUONEB *Not for PRN Use IH SCH ×2 (09:21→14:28)
--- NOTE | 2018-03-29 09:36 | Progress Note ---
Subjective Date of service: 03/29/18 Interval history: Interval history: pt denies orthopnea, no chest pain, milrinone to be discontinued ok to send home, hyponatremia improved Continue therapy for acute systolic heart failure Sodium has improved, cont to monitor Non-invasive ischemic cardiac work-up once COPD exacerbation has resolved Ischemic w/u as outpt Original Note: Assessment and Plan COPD exacerbation Acute systolic heart failure, uncertain etiology severe dilated cardiomyopathy, EF 10-15% by echocardiogram. Severe Hyponatremia Recommend: Medical therapy for acute systolic heart failure. Sodium/fluid restriction. Daily weight. Noninvasive ischemic workup with a Persantine thallium will be recommended only after the patient's pulmonary status is optimized and has COPD exacerbation is completely resolved. Objective Vital Signs Temp Pulse Pulse Resp Resp BP BP 03/29/18 09:31 79 18 03/29/18 09:22 81 18 03/29/18 09:21 03/29/18 04:05 97.6 F 71 20 129/64 03/29/18 04:00 68 03/29/18 00:17 98.2 F 64 18 131/69 03/28/18 21:54 03/28/18 21:53 84 16 03/28/18 21:45 82 16 03/28/18 20:27 97.9 F 78 20 133/68 03/28/18 15:51 97.9 F 82 22 99/47 03/28/18 14:17 72 20 03/28/18 14:07 77 20 03/28/18 12:00 97.6 F 76 22 109/56 03/28/18 10:00 97.6 F 89 22 109/56 Pulse Ox 03/29/18 09:31 03/29/18 09:22 03/29/18 09:21 92 03/29/18 04:05 90 03/29/18 04:00 03/29/18 00:17 92 03/28/18 21:54 97 03/28/18 21:53 03/28/18 21:45 03/28/18 20:27 95 03/28/18 15:51 95 03/28/18 14:17 03/28/18 14:07 03/28/18 12:00 93 03/28/18 10:00 93 - Physical Examination General: No Apparent Distress HEENT: Positive: PERRL Cardiac: Positive: Reg Rate and Rhythm, S1/S2 Lungs: Positive: Normal Exam Neuro: Positive: Grossly Intact Abdomen: Positive: Unremarkable Extremities: Present: +2 Edema - Labs and Meds Comprehensive Metabolic Panel 03/29/18 Range/Units 00:56 Sodium 128 L (137-145) mmol/L Potassium 4.1 (3.6-5.0) mmol/L Chloride 80.5 L (98-107) mmol/L Carbon Dioxide 38 H (22-30) mmol/L BUN 29 H (7-17) mg/dL Creatinine 0.6 L (0.7-1.2) mg/dL Glucose 119 H (65-100) mg/dL Calcium 9.0 (8.4-10.2) mg/dL
[2018-03-29] MEDS ORDERED: LASIX PO SCH (10:00)
--- NOTE | 2018-03-29 10:23 | Discharge Summary ---
Providers - Providers Date of Admission: 03/25/18 14:52 Attending physician: AMIRA IVORY MD 03/25/18 14:52 Consult to Physician [CONS] Routine Comment: GianniMASON NOTIFIED [id number] Consulting Provider: MACARIO RANDLE Physician Instructions: Reason For Exam: chf 03/29/18 04:13 Consult to Case Management [CONS] Routine Services Needed at Discharge: Arm Rest Builder Notified:: no Primary care physician: SAMPLE COORDINATOR Hospitalization Reason for admission: Acute systolic CHF Condition: Serious Disposition: DC-01 TO HOME OR SELFCARE Time spent for discharge: 31 minutes - Discharge Diagnoses (1) CHF (congestive heart failure) Status: Acute Qualifiers: Heart failure type: systolic Heart failure chronicity: acute Qualified Code(s): I50.21 - Acute systolic (congestive) heart failure (2) COPD (chronic obstructive pulmonary disease) Status: Acute Qualifiers: COPD type: chronic bronchitis (3) Hyponatremia syndrome Status: Acute (4) Hypoxia Status: Acute Core Measure Documentation - Palliative Care Palliative Care/ Comfort Measures: Not Applicable - Core Measures Any of the following diagnoses?: heart failure - Heart Failure Discharge Requirements TOMMIE/ARB for LVSD if EF <40%: Yes Beta sarkis at discharge: Yes Exam - Physical Exam Narrative exam: Not in cardiopulmonary distress. The patient appeared well nourished and normally developed. Vital signs as documented. Head exam is unremarkable. No scleral icterus . Neck is without jugular venous distension, thyromegaly, or carotid bruits. Lungs scattered wheezing. Cardiac exam reveals regular rate and Rhythm.. Abdominal exam reveals normal bowel sounds, no masses, no organomegaly and no aortic enlargement. Extremities are nonedematous and both femoral and pedal pulses are normal. 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 No focal weakness. - Constitutional Vitals: Temp Pulse Resp BP Pulse Ox 97.6 F 79 18 129/64 92 03/29/18 04:05 03/29/18 09:31 03/29/18 09:31 03/29/18 04:05 03/29/18 09:21 Plan Activity: no restrictions Weight Bearing Status: Full Weight Bearing Diet: low cholesterol, low salt Additional Instructions: follow up at [facility] [place] in 1-2 weeks Follow up with: VIOLETTA PINEDA MD [Primary Care Provider] - 7 Days NATHAN SHANNON MD [Staff Physician] - 7 Days Prescriptions: ALBUTEROL NEB's [Proventil 0.083% NEBS] 2.5 mg IH Q4HRT PRN #1 nebu PRN Reason: Shortness Of Breath Carvedilol [Coreg] 3.125 mg PO BID #60 tablet Furosemide [Lasix TAB] 40 mg PO QDAY #30 tablet Lisinopril [Zestril TAB] 2.5 mg PO QDAY #30 tablet Ondansetron [Zofran INJ] 4 mg IV Q8H PRN #30 vial PRN Reason: Nausea And Vomiting Prednisone [predniSONE 10 mg (6-Day Pack, 21 Tabs)] 10 mg PO .TAPER #1 tab.ds.pk Ipratropium/Albuterol Sulfate [DUONEB *Not for PRN Use*] 1 ampul IH TIDRT #60 ampul.neb
[2018-03-29] MEDS: HEPARIN SUB-Q SCH (10:38)
[2018-03-29] MEDS: K-DUR PO SCH (10:42)
[2018-03-29] MEDS: SODIUM CHLORIDE FLUSH SYRINGE 10 ML IV SCH (10:42)
[2018-03-29] MEDS: ZESTRIL PO SCH (14:39)
[2018-03-29] MEDS: HumaLOG SUB-Q SCH (14:41)
[2018-03-29] MEDS: COREG PO SCH (14:42)
[2018-03-29 14:44] VITALS: BP 108/56
== END 2018-03-29 14:10 | disposition home or self-care (01) | DRG 291 ==
LOC: ED 13:07 → 4A 14:52
PROVIDERS: ADMIT Internal Medicine; ATTEND Internal Medicine
DX: I11.0 Hypertensive heart disease with heart failure (principal); J96.21 Acute and chronic respiratory failure with hypoxia; E87.1 Hypo-osmolality and hyponatremia; J44.1 Chronic obstructive pulmonary disease with (acute) exacerbation; I50.23 Acute on chronic systolic (congestive) heart failure; I42.0 Dilated cardiomyopathy; E11.9 Type 2 diabetes mellitus without complications; M19.90 Unspecified osteoarthritis, unspecified site; F17.210 Nicotine dependence, cigarettes, uncomplicated; Z88.5 Allergy status to narcotic agent; Z86.73 Personal history of transient ischemic attack (TIA), and cerebral infarction without residual deficits; I25.2 Old myocardial infarction; Z98.51 Tubal ligation status; Z72.89 Other problems related to lifestyle; Z99.81 Dependence on supplemental oxygen
CPT/HCPCS: 36415; 71045; 80048; 80061; 82570; 82962; 83036; 83880; 84300; 84439; 84443; 84484; 85025; 93005; 93010; 93306; 94640; 94760; 96374; 99406; J1644; J1815; J1940; J2260; J2930